=== PATIENT | male | born 1960 | race Caucasian/White ===

== ENCOUNTER 2023-10-03 20:56 | Inpatient (IN) | payer MEDICAID ==
[~2023-10-03] VITALS: Ht 175.3 cm; Wt 64.0 kg
[~2023-10-03 20:56] MED LIST: CARV3.1242 MT; FURO-151 MT; LOSA25TA26 MT
[2023-10-03 22:00] LABS: BASOPHILS % 0.7 % (0.0-2.0); EOSINOPHILS % 1.8 % (0.0-5.0); HEMATOCRIT. 32.1 % (42.0-52.0); HEMOGLOBIN. 10.7 g/dL (14.0-18.0); LYMPHOCYTES % 20.9 % (20.0-50.0); MEAN CORPUSCULAR HGB CONC 33.2 g/dL (31.0-37.0); MEAN CORPUSCULAR VOLUME 87.4 fL (80.0-94.0); MEAN PLATELET VOLUME 8.8 fl (7.4-10.4); MONOCYTES % 6.4 % (2.0-8.0); NEUTROPHILS % 70.2 % (40.0-76.0); PLATELET 211 x1000/uL (130-400); RED BLOOD CELL COUNT 3.68 mill/uL (4.7-6.1); RED CELL DISTRIBUTION WIDTH 13.3 % (11.6-14.6); WHITE BLOOD COUNT 7.8 x1000/uL (4.5-11.0)
[2023-10-03] MEDS ORDERED: HYDRALAZINE 20MG/ML VIAL IV ONE (22:00)
[2023-10-03 22:22] LABS: ALANINE AMINOTRANSFERASE 14 IU/L (10-49); ALBUMIN 4.2 g/dL (3.2-4.8); ASPARTATE AMINOTRANSFERASE 21 IU/L (<34); BILIRUBIN TOTAL 0.4 mg/dL (0.1-1.0); CALCIUM 8.5 mg/dL (8.7-10.4); CARBON DIOXIDE 28 mEq/L (21-32); CHLORIDE 106 mEq/L (98-107); CREATININE 1.4 mg/dL (0.6-1.3); GLUCOSE 92 mg/dL (70-105); POTASSIUM 3.7 mEq/L (3.5-5.1); SODIUM 140 mEq/L (136-145); TROPONIN I HIGH SENSITIVITY 42 ng/L (3.0-53); UREA NITROGEN BLOOD 29 mg/dL (9-23)
[2023-10-03] MEDS ORDERED: MORPHINE SULFATE 2 MG/ML CPJ (NOT FOR IM USE) IV NR (23:00)
[2023-10-03 23:44] LABS: CREATINE KINASE 133 IU/L (46-171)
[2023-10-04 00:03] LABS: CLARITY URINE CLEAR (CLEAR); COLOR URINE YELLOW (YELLOW); GLUCOSE URINE NEGATIVE (NEGATIVE); KETONES URINE NEGATIVE (NEGATIVE); LEUKOCYTE ESTERASE URINE NEGATIVE (NEGATIVE); NITRITE URINE NEGATIVE (NEGATIVE); OCCULT BLOOD URINE TRACE (NEGATIVE); PROTEIN URINE TRACE (NEGATIVE); SPECIFIC GRAVITY URINE 1.017 (1.005-1.030); UROBILINOGEN URINE 0.2 E.U./dL (0.2-1.0)
[2023-10-04 02:58] LABS: BACTERIA URINE NONE SEEN; RBC URINE 0-2 /hpf (0-2); SQUAMOUS EPITHELIAL CELL URINE FEW /lpf (RARE/1+); WBC URINE 0-2 /hpf (0-2)
[2023-10-04] MEDS ORDERED: CLONIDINE 0.1MG TABLET PO PRN (08:30)
[2023-10-04] MEDS ORDERED: DOCUSATE SODIUM 100MG CAPSULE PO PRN (08:30)
[2023-10-04] MEDS ORDERED: TRAMADOL 50MG TABLET PO PRN (08:30)
[2023-10-04] MEDS ORDERED: DIPHENHYDRAMINE 50MG/ML VIAL IV PRN (08:30)
[2023-10-04] MEDS ORDERED: GUAIFENESIN 200MG/10ML SUGAR FREE UDC PO PRN (08:30)
[2023-10-04] MEDS ORDERED: ONDANSETRON HCL 4MG/2ML INJ IV PRN (08:30)
[2023-10-04] MEDS ORDERED: AMLODIPINE 5MG TABLET PO SCH (09:00)
[2023-10-04 10:15] VITALS: BP 166/111; PULSE 83; RESP 18; TEMP 97.2
[2023-10-04 10:37] VITALS: BP 160/111; PULSE 83; RESP 18; TEMP 97.2
[2023-10-04] MEDS: ENOXAPARIN 40MG/0.4ML SYR SUBCUT SCH (10:46)
[2023-10-04] MEDS: FUROSEMIDE 40MG/4ML VIAL IV SCH (10:46)
[2023-10-04] MEDS: ACETAMINOPHEN 325MG TABLET PO PRN (10:46)
[2023-10-04] MEDS ORDERED: NALOXONE HCL 0.4MG/ML VIAL IV PRN (15:30)
[2023-10-04 16:00] VITALS: BP 124/89; PULSE 83; RESP 13; TEMP 97.7
[2023-10-04 17:30] LABS: TROPONIN I HIGH SENSITIVITY 28 ng/L (3.0-53)
[2023-10-04] MEDS: HYDRALAZINE HCL 50MG TABLET PO SCH (17:47)
[2023-10-04 20:00] VITALS: BP 103/63; PULSE 100; RESP 18; TEMP 98.3
[2023-10-04] MEDS: CARVEDILOL 3.125 MG TABLET PO SCH (21:00)
[2023-10-04] MEDS: HYDROCODONE/ACETAMINOPHEN 5/325MG TABLET PO PRN (22:39)
[2023-10-04 23:50] LABS: TROPONIN I HIGH SENSITIVITY 31 ng/L (3.0-53)
[2023-10-05] VITALS: BP 127/71; PULSE 89; RESP 17; TEMP 98
[2023-10-05 04:00] VITALS: BP 122/72; PULSE 79; RESP 17; TEMP 98
[2023-10-05 06:56] LABS: BASOPHILS % 0.7 % (0.0-2.0); EOSINOPHILS % 2.1 % (0.0-5.0); HEMATOCRIT. 38.3 % (42.0-52.0); HEMOGLOBIN. 12.9 g/dL (14.0-18.0); MEAN CORPUSCULAR HEMOGLOBIN 29.2 pg (28.0-32.0); MEAN CORPUSCULAR HGB CONC 33.7 g/dL (31.0-37.0); MEAN CORPUSCULAR VOLUME 86.7 fL (80.0-94.0); MEAN PLATELET VOLUME 8.8 fl (7.4-10.4); MONOCYTES % 7.5 % (2.0-8.0); NEUTROPHILS % 68.7 % (40.0-76.0); PLATELET 266 x1000/uL (130-400); RED BLOOD CELL COUNT 4.42 mill/uL (4.7-6.1); RED CELL DISTRIBUTION WIDTH 13.3 % (11.6-14.6); WHITE BLOOD COUNT 7.8 x1000/uL (4.5-11.0)
[2023-10-05 07:14] LABS: ALANINE AMINOTRANSFERASE 9 IU/L (10-49); ALBUMIN 4.1 g/dL (3.2-4.8); ASPARTATE AMINOTRANSFERASE 17 IU/L (<34); BILIRUBIN TOTAL 0.5 mg/dL (0.1-1.0); CALCIUM 8.8 mg/dL (8.7-10.4); CARBON DIOXIDE 24 mEq/L (21-32); CHLORIDE 103 mEq/L (98-107); CHOLESTEROL 136 mg/dL (<200); CREATININE 1.4 mg/dL (0.6-1.3); GLUCOSE 78 mg/dL (70-105); HDL CHOLESTEROL 47 mg/dL (>55); LDL CHOLESTEROL 81 mg/dL (5-100); POTASSIUM 3.7 mEq/L (3.5-5.1); SODIUM 136 mEq/L (136-145); TRIGLYCERIDE 104 mg/dL (0-150); UREA NITROGEN BLOOD 24 mg/dL (9-23)
[2023-10-05 08:00] VITALS: BP 147/101; PULSE 93; RESP 18; TEMP 97.1
[2023-10-05] MEDS: HYDRALAZINE HCL 50MG TABLET PO SCH (09:05)
[2023-10-05] MEDS: AMLODIPINE 10MG TABLET PO SCH (09:05)
[2023-10-05] MEDS: FUROSEMIDE 40MG/4ML VIAL IV SCH (09:05)
[2023-10-05] MEDS: ENOXAPARIN 40MG/0.4ML SYR SUBCUT SCH (09:05)
[2023-10-05] MEDS: CARVEDILOL 3.125 MG TABLET PO SCH ×2 (09:05→22:17)
[2023-10-05] MEDS: ACETAMINOPHEN 325MG TABLET PO PRN ×2 (09:16→10:43)
[2023-10-05] MEDS ORDERED: HYDRALAZINE 20MG/ML VIAL IV PRN (09:45)
[2023-10-05 12:00] VITALS: BP 97/62; PULSE 88; RESP 18; TEMP 97.6
[2023-10-05] MEDS: LOSARTAN 50 MG TABLET PO SCH (16:05)
[2023-10-05] MEDS: HYDROCODONE/ACETAMINOPHEN 5/325MG TABLET PO PRN (16:51)
[2023-10-05 20:00] VITALS: BP 128/93; PULSE 118; RESP 20; TEMP 97.5
[2023-10-05] MEDS: ALPRAZOLAM 0.25 MG TABLET PO SCH (22:17)
[2023-10-06] VITALS: BP 140/102; PULSE 118; RESP 18; TEMP 97.2
[2023-10-06] MEDS: HYDROCODONE/ACETAMINOPHEN 5/325MG TABLET PO PRN ×2 (01:05→07:51)
[2023-10-06] MEDS: CARVEDILOL 3.125 MG TABLET PO SCH (07:52)
[2023-10-06] MEDS: ENOXAPARIN 40MG/0.4ML SYR SUBCUT SCH (07:53)
[2023-10-06] MEDS: FUROSEMIDE 40MG/4ML VIAL IV SCH (07:53)
[2023-10-06] MEDS: AMLODIPINE 10MG TABLET PO SCH (07:54)
[2023-10-06] MEDS: LOSARTAN 50 MG TABLET PO SCH (07:54)
[2023-10-06 09:05] VITALS: BP 162/106; PULSE 138; RESP 22; TEMP 97.8
[2023-10-06] MEDS ORDERED: METOPROLOL TARTRATE 25MG TABLET PO SCH (09:41)
[2023-10-06] MEDS: ALPRAZOLAM 0.25 MG TABLET PO SCH ×2 (09:41→20:57)
[2023-10-06] MEDS: METOPROLOL TARTRATE 25MG TABLET PO SCH (18:09)
[2023-10-06 20:00] VITALS: BP_SYST 146; BP_SYST 94; BP_DIAS 65; BP_DIAS 72; PULSE 80; PULSE 87; RESP 19; TEMP 97.2; TEMP 98.1
[2023-10-07] VITALS: BP_SYST 115; BP_SYST 99; BP_DIAS 57; BP_DIAS 82; PULSE 61; PULSE 94; RESP 18; RESP 20; TEMP 100.9; TEMP 97.9
[2023-10-07] MEDS: HYDROCODONE/ACETAMINOPHEN 5/325MG TABLET PO PRN ×3 (02:01→14:05)
[2023-10-07 04:00] VITALS: BP_SYST 126; BP_SYST 97; BP_DIAS 56; BP_DIAS 65; PULSE 100; PULSE 81; RESP 19; TEMP 97.9; TEMP 99
[2023-10-07 08:00] VITALS: BP 120/64; PULSE 93; RESP 19; TEMP 97.8
[2023-10-07] MEDS: ACETAMINOPHEN 325MG TABLET PO PRN (09:03)
[2023-10-07] MEDS: FUROSEMIDE 40MG/4ML VIAL IV SCH (09:04)
[2023-10-07] MEDS: ENOXAPARIN 40MG/0.4ML SYR SUBCUT SCH (09:04)
[2023-10-07] MEDS: LOSARTAN 50 MG TABLET PO SCH (09:05)
[2023-10-07] MEDS: AMLODIPINE 10MG TABLET PO SCH (09:05)
[2023-10-07] MEDS: METOPROLOL TARTRATE 25MG TABLET PO SCH (09:05)
[2023-10-07] MEDS: ALPRAZOLAM 0.25 MG TABLET PO SCH (09:13)
[2023-10-07 14:05] VITALS: RESP 18
[2023-10-07 15:29] VITALS: BP 120/78; PULSE 82; TEMP 98; O2SAT 98
== END 2023-10-07 15:45 | disposition home or self-care (01) | DRG 48 ==
LOC: ER 20:56 → 5WST 10-04 00:38 → 7EST 10-04 10:02
PROVIDERS: ADMIT Hospitalist; ATTEND Hospitalist
DX: G90.8 Other disorders of autonomic nervous system (principal); I50.43 Acute on chronic combined systolic (congestive) and diastolic (congestive) heart failure; N17.9 Acute kidney failure, unspecified; I42.9 Cardiomyopathy, unspecified; L40.50 Arthropathic psoriasis, unspecified; I11.0 Hypertensive heart disease with heart failure; I45.81 Long QT syndrome; I16.0 Hypertensive urgency; D64.9 Anemia, unspecified; F32.9 Major depressive disorder, single episode, unspecified; E78.5 Hyperlipidemia, unspecified; F17.210 Nicotine dependence, cigarettes, uncomplicated; F15.10 Other stimulant abuse, uncomplicated; F14.10 Cocaine abuse, uncomplicated; Z79.899 Other long term (current) drug therapy
CPT/HCPCS: 36415; 71045; 80053; 80061; 81003; 82550; 82962; 83735; 83880; 84484; 85025; 93005; 93306; 93970; 99285; J0360; J1200; J1650; J1940; J2270

== ENCOUNTER 2023-10-19 02:25 | Emergency (ER) | payer MEDICAID ==
[~2023-10-19] VITALS: Ht 177.8 cm; Wt 75.0 kg
[2023-10-19 02:26] VITALS: O2SAT 96
[2023-10-19 06:11] LABS: ALANINE AMINOTRANSFERASE 14 IU/L (10-49); ALBUMIN 3.8 g/dL (3.2-4.8); ASPARTATE AMINOTRANSFERASE 18 IU/L (<34); BILIRUBIN TOTAL 0.3 mg/dL (0.1-1.0); CALCIUM 8.4 mg/dL (8.7-10.4); CARBON DIOXIDE 25 mEq/L (21-32); CHLORIDE 107 mEq/L (98-107); CREATININE 1.5 mg/dL (0.6-1.3); GLUCOSE 94 mg/dL (70-105); POTASSIUM 3.5 mEq/L (3.5-5.1); PROTEIN TOTAL 7.1 g/dL (6.0-8.3); SODIUM 140 mEq/L (136-145); UREA NITROGEN BLOOD 30 mg/dL (9-23)
[2023-10-19 06:21] LABS: BASOPHILS % 0.7 % (0.0-2.0); EOSINOPHILS % 1.4 % (0.0-5.0); HEMATOCRIT. 28.3 % (42.0-52.0); HEMOGLOBIN. 9.5 g/dL (14.0-18.0); LYMPHOCYTES % 11.7 % (20.0-50.0); MEAN CORPUSCULAR HEMOGLOBIN 29.3 pg (28.0-32.0); MEAN CORPUSCULAR HGB CONC 33.6 g/dL (31.0-37.0); MEAN CORPUSCULAR VOLUME 87.2 fL (80.0-94.0); MEAN PLATELET VOLUME 7.2 fl (7.4-10.4); MONOCYTES % 6.4 % (2.0-8.0); NEUTROPHILS % 79.8 % (40.0-76.0); PLATELET 600 x1000/uL (130-400); RED BLOOD CELL COUNT 3.24 mill/uL (4.7-6.1); RED CELL DISTRIBUTION WIDTH 14.4 % (11.6-14.6); WHITE BLOOD COUNT 10.3 x1000/uL (4.5-11.0)
[2023-10-19] MEDS: MORPHINE SULFATE 4 MG/ML CPJ (NOT FOR IM USE) IV STA (06:48)
[2023-10-19] MEDS: ONDANSETRON HCL 4MG/2ML INJ IV STA (06:56)
[2023-10-19] MEDS ORDERED: IOHEXOL-300 100 ML BOTTLE ONE ×2 (07:52→10:59)
[2023-10-19 07:54] LABS: CLARITY URINE CLEAR (CLEAR); COLOR URINE YELLOW (YELLOW); GLUCOSE URINE NEGATIVE (NEGATIVE); KETONES URINE NEGATIVE (NEGATIVE); LEUKOCYTE ESTERASE URINE NEGATIVE (NEGATIVE); NITRITE URINE NEGATIVE (NEGATIVE); OCCULT BLOOD URINE NEGATIVE (NEGATIVE); PROTEIN URINE 1+ (NEGATIVE); SPECIFIC GRAVITY URINE 1.025 (1.005-1.030)
[2023-10-19 08:11] LABS: RBC URINE 0-2 /hpf (0-2); SQUAMOUS EPITHELIAL CELL URINE FEW /lpf (RARE/1+)
[2023-10-19 08:12] LABS: BACTERIA URINE TRACE; FINE GRANULAR CASTS URINE 0-5 /lpf; HYALINE CASTS URINE 0-5 /lpf
[2023-10-19 08:13] LABS: MUCUS URINE TRACE /lpf (NONE/TRACE)
[2023-10-19] MEDS: MAGNESIUM/ALUMINUM HYDROXIDE/SIMETHICONE 30ML UDC PO STA (09:02)
[2023-10-19] MEDS ORDERED: OMEP40CA20 MT (09:05)
[2023-10-19] MEDS: PANTOPRAZOLE SODIUM 40 MG/VIAL IV ONE (09:55)
[2023-10-19 10:53] VITALS: BP 147/96; PULSE 99; RESP 19; TEMP 98.5
== END 2023-10-19 11:14 | disposition home or self-care (01) ==
LOC: ER 02:25
DX: R10.13 Epigastric pain (principal); F12.10 Cannabis abuse, uncomplicated; F15.10 Other stimulant abuse, uncomplicated; I11.0 Hypertensive heart disease with heart failure; I50.9 Heart failure, unspecified; Z88.6 Allergy status to analgesic agent
CPT/HCPCS: 80053; 81003; 83690; 85025; 36415; 74177; 96374; 96375; 99285; Q9967; J2405; C9113; J2270; Z7610 ×2